=== PATIENT | female | born 1985 | race Hispanic/Latino ===

== ENCOUNTER 2017-08-22 21:03 | Emergency (ER) | payer BC ==
[~2017-08-22] VITALS: Ht 160 cm; Wt 65.8 kg
--- OUTSIDE RECORDS SUMMARY | ~2017-08-22 | XMS | Clinical Summary ---
Demographics + + + | Address | [address] | | | [place] [address] | + + + | Home Phone | | + + + | Preferred Language | Unknown | + + + | Marital Status | | + + + | Rastafarian Affiliation | NON | + + + | Race | Unknown | + + + | Ethnic Group | Other Race | + + + Author + + + | Author | [facility] | + + + | Organization | [facility] | + + + | Address | Unknown | + + + | Phone | Unavailable | + + + Support +------+ + + + + | Name | Relationship | Address | Phone | +------+ + + + + ECON | [address] | | [place] [address] | +------+ + + + + Care Team Providers + +------+ + | Care Cattle Manager Name | Role | Phone | + +------+ + PP | Unavailable | + +------+ + Source Comments JENNIFER is fully [email or web address] [place] [facility] Allergies No Known Allergies Current Medications Not on file Active Problems Not on file Social History + +-------+ +--------+------+ | Tobacco Use | Types | Packs/Day | Years | Date | | | | | Used | | + +-------+ +--------+------+ | Never Assessed | | | | | + +-------+ +--------+------+ + + + | Sex Assigned at | Date Recorded | | | | + + + | Not on file | | + + + Last Filed Vital Signs + + + + | Vital Sign | Reading | Time Taken | + + + + | Blood Pressure | 113/65 | 12/09/2007 5:21 PM PDT | + + + + | Pulse | 82 | 12/09/2007 5:21 PM PDT | + + + + | Temperature | 36.6 C (97.9 F) | 12/09/2007 5:21 PM PDT | + + + + | Respiratory Rate | 16 | 12/09/2007 5:21 PM PDT | + + + + | Oxygen Saturation | 98% | 12/09/2007 5:21 PM PDT | + + + + | Inhaled Oxygen | - | - | | Concentration | | | + + + + | Weight | - | - | + + + + | Height | - | - | + + + + | Body Mass Index | - | - | + + + + Plan of Treatment + + + + + | Health Maintenance | Due Date | Last Done | Comments | + + + + + | INFLUENZA VACCINE | | | | | (FLU SHOT) | 7 | | | + + + + + Results Not on filefrom Last 3 Months"
--- OUTSIDE RECORDS SUMMARY | ~2017-08-22 | XMS | Clinical Summary ---
Demographics + + + | Address | [address] | | | [place] [address] | + + + | Home Phone | | + + + | Preferred Language | Unknown | + + + | Marital Status | | + + + | Scientology Affiliation | NON | + + + [...] [address] | | [place] [address] | +------+ + + + + Care Team Providers + +------+ + | Care Director Of Property Management Name | Role | Phone | + +------+ + PP | Unavailable | + +------+ + Source Comments JENNIFER is fully live [facility] Allergies No Known Allergies Current Medications [...]
[~2017-08-22 21:03] MED LIST: DILAUDID4 MG PO; IBUPROFEN600 MG PO; IRON325 M1 PO
[2017-08-22] MEDS ORDERED: MONO-LINYAH1 EACH PO (21:23)
--- NOTE | 2017-08-23 18:23 | EKG ---
[facility] [address] [facility] [address] [place] [address] Signed Normal sinus rhythm Early repolarization Normal ECG No previous ECGs available Confirmed by BRI SALAZAR MD ([id number]) on 08/23/2017 6:23:39 PM Electronically Signed By: BRI SALAZAR MD 08/23/17 1823 PATIENT NAME: JOSE NIGELAVE Myron Electrocardiogram DATE OF : 89 PHYSICIAN: BRI SALAZAR MD REPORT #: [id number] REPORT IS CONFIDENTIAL AND NOT TO BE RELEASED WITHOUT AUTHORIZATION
== END 2017-08-23 01:33 | disposition home or self-care (01) ==
LOC: ED 21:03
DX: R55 Syncope and collapse (principal); R10.13 Epigastric pain; R10.11 Right upper quadrant pain
CPT/HCPCS: 76705; 80053; 81001; 83690; 84703; 85025; 93005; 93010; 96361; 96374; 99284; J2405; J7030

== ENCOUNTER 2022-08-19 21:05 | Emergency (ER) | payer OTHER, BC ==
[~2022-08-19] VITALS: Ht 160 cm; Wt 66.5 kg
[~2022-08-19 21:05] MED LIST changes: +ACETAMINOPHEN500 MG PO; +MONO-LINYAH1 EACH PO; +MOTRIN IB200 MG PO; +PERCOCET 7.5-31 EACH PO; +TYLENOL EXTRA500 MG PO
--- OUTSIDE RECORDS SUMMARY | 2022-08-19 21:06 | XMS ---
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 Danae has no Care Guidelines for this patient. [place] V[facility] COUNT (12 MO.) [facility] T[facility] NOTE: Visits indicate total known visits. ED/C VISIT TRACKING (12 MO.) 08/19/2022 21:[facility] COMPLAINT: - WOUND CK 08/11/2022 20:42 [facility] TYPE: Emergency COMPLAINT: - N/V AND FAINTED PER SON INPATIENT VISIT TRACKING (12 MO.) 08/11/2022 20:43 [facility] TYPE: Observation COMPLAINT: - CHOLECYSTITIS DIAGNOSES: - Contact with and (suspected) exposure to COVID-19 - Acute cholecystitis with chronic cholecystitis [email or web address]
== END 2022-08-19 23:45 | disposition home or self-care (01) ==
LOC: ED 21:05
DX: Z48.815 Encounter for surgical aftercare following surgery on the digestive system (principal)
CPT/HCPCS: 36415; 80053; 85025; 99283